=== PATIENT | female | born 1980 | race Caucasian/White ===

== ENCOUNTER 2016-11-13 08:46 | Emergency (ER) | payer BC ==
[~2016-11-13] VITALS: Ht 167.6 cm; Wt 65.9 kg
[~2016-11-13 08:46] MED LIST: DPKSR250 PO; SUMA50TA15 PO
[2016-11-13 08:48] VITALS: Ht 167.6 cm; Wt 65.9 kg
[2016-11-13] MEDS ORDERED: THYR90TA PO (09:40)
[2016-11-13] MEDS ORDERED: IBUP-103 PO (09:40)
[2016-11-13 10:55] LABS: BASO % 0.1 %; BASO ABS # 0.01 K/uL (0-0.2); COMPLETE YES; EOS % 0.4 %; HEMATOCRIT 41.7 % (37-47); IG% 0.3 %; LYMPH % 14.9 %; LYMPH ABS # 1.89 K/uL (1.2-3.4); MEAN CELL VOLUME 86.7 fL (80-100); MEAN CORPUSCULAR HEMOGLOBIN 30.1 pg (25-34); MEAN CORPUSCULAR HGB CONC 34.8 g/dl (32-36); MEAN PLATELET VOLUME 10.9 fL (7.4-10.4); MONO % 6.5 %; NEUT % 77.8 %; PLATELET COUNT 203 K/uL (130-400); RED BLOOD COUNT 4.81 M/uL (4.2-5.4); WHITE BLOOD COUNT 12.71 K/uL (4.8-10.8)
[2016-11-13 11:10] LABS: BUN/CREATININE RATIO 13.7 (10-20); CREATININE 0.73 mg/dl (0.60-1.20)
[2016-11-13 12:22] VITALS: BP 99/66; PULSE 78; TEMP 36.8; O2SAT 98
--- NOTE | 2016-11-13 12:35 | EMERGENCY ROOM VISIT NOTE ---
History Report prepared by Anusha: Jojo Pierce Under the Supervision of: Dr. Ladan Wu M.D. First contact with patient: 10:17 Chief Complaint: RECTAL BLEEDING Stated Complaint: BLOOD IN STOOL Nursing Triage Summary: pt to the ED with dark stool 6 days ago lasted 3 days, then got bright red and thought it was a hemmroid tried OTC meds for it and didn't work and PMD ordered a "foam" and woke up 4 am yesterday with bright red blood saw jean claude LY at [facility] and they did bloodwork no word on results and now today continued bright red blood. "a little dizziness nothing major" per pt and c/o pressure and gas History of Present Illness The patient is a 35 year old female who presents to the Emergency Room with complaints of intermittent rectal bleeding for the past 6 days. Initially she was having blood throughout her stool, but states that over the past couple of days she has been passing blood without any stool. She rates her pain as a 5/ 10. She saw her PCP 3 days ago because she was passing blood every 20 minutes and she was treated for hemorrhoids at that time. 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 She denies any constipation. She has a history of a but denies any other previous abdominal surgeries. Source of History: patient Onset: 6 days ago Position: other (rectum) Symptom Intensity: 5/10 Quality: other (bleeding) Timing: intermittent Modifying Factors (Worsening): defecation Note: Pt denies constipation. Review of Systems See HPI for pertinent positives & negatives. A total of 10 systems reviewed and were otherwise negative. Past Medical & Surgical Surgical Problems: (1) Hx of section Family History No pertinent history stated. Social History Smoking Status: Never Smoker Alcohol Use: occasionally Marital Status: Housing Status: lives with family Occupation Status: employed Current/Historical Medications Scheduled Ibuprofen Tab (Advil), 200-600 MG PO Q4H Sumatriptan Succinate (Imitrex), 50 MG PO PRN Thyroid ([place] Thyroid), 80 MG PO DAILY Allergies Coded Allergies: Codeine (Verified Adverse Reaction, Mild, NAUSEA, 03/19/13) Physical Exam Vital Signs Date Time Temp Pulse Resp B/P Pulse Ox O2 Delivery O2 Flow Rate FiO2 11/13/16 12:22 36.8 78 20 99/66 98 11/13/16 12:10 78 99/66 98 Room Air 11/13/16 10:56 81 20 118/71 100 Room Air 11/13/16 08:48 36.8 88 18 130/89 98 Room Air Physical Exam CONSTITUTIONAL: No acute distress. HEENT: No icterus, moist mucous membranes NECK: No meningismus, trachea is midline. CARDIOVASCULAR: Regular rate, normal perfusion RESPIRATORY: Unlabored breathing. Clear to auscultation. GASTROINTESTINAL: Non-tender GENITOURINARY: No flank tenderness RECTAL: Small hemorrhoid without active bleeding, small amount of bright red blood on digital exam, no active bleeding. MUSCULOSKELETAL: Full range of motion NEUROLOGIC: No acute gross focal deficits. PSYCHIATRIC: Normal affect SKIN: Normal for ethnicity. Medical Decision & Procedures Laboratory Results 11/13/16 10:40 Red Blood Count 4.81, Mean Corpuscular Volume 86.7, Mean Corpuscular Hemoglobin 30.1, Mean Corpuscular Hemoglobin Concent 34.8, Mean Platelet Volume 10.9, Neutrophils (%) (Auto) 77.8, Lymphocytes (%) (Auto) 14.9, Monocytes (%) (Auto) 6.5, Eosinophils (%) (Auto) 0.4, Basophils (%) (Auto) 0.1, Neutrophils # (Auto) 9.90, Lymphocytes # (Auto) 1.89, Monocytes # (Auto) 0.82, Eosinophils # (Auto) 0.05, Basophils # (Auto) 0.01 11/13/16 10:40 Test 11/13/16 10:40 White Blood Count 12.71 K/uL (4.8-10.8) Red Blood Count 4.81 M/uL (4.2-5.4) Hemoglobin 14.5 g/dL (12.0-16.0) Hematocrit 41.7 % (37-47) Mean Corpuscular Volume 86.7 fL (80-100) Mean Corpuscular Hemoglobin 30.1 pg (25-34) Mean Corpuscular Hemoglobin Concent 34.8 g/dl (32-36) Platelet Count 203 K/uL (130-400) Mean Platelet Volume 10.9 fL (7.4-10.4) Neutrophils (%) (Auto) 77.8 % Lymphocytes (%) (Auto) 14.9 % Monocytes (%) (Auto) 6.5 % Eosinophils (%) (Auto) 0.4 % Basophils (%) (Auto) 0.1 % Neutrophils # (Auto) 9.90 K/uL (1.4-6.5) Lymphocytes # (Auto) 1.89 K/uL (1.2-3.4) Monocytes # (Auto) 0.82 K/uL (0.11-0.59) Eosinophils # (Auto) 0.05 K/uL (0-0.5) Basophils # (Auto) 0.01 K/uL (0-0.2) RDW Standard Deviation 38.8 fL (36.4-46.3) RDW Coefficient of Variation 12.1 % (11.5-14.5) Immature Granulocyte % (Auto) 0.3 % Immature Granulocyte # (Auto) 0.04 K/uL (0.00-0.02) Anion Gap 8.0 mmol/L (3-11) Est Creatinine Clear Calc Drug Dose 102.5 ml/min Estimated GFR () 125.4 Estimated GFR (Non- 108.2 BUN/Creatinine Ratio 13.7 (10-20) Calcium Level 9.0 mg/dl (8.5-10.1) Labs reviewed by ED physician. ED Course 1017: Past medical records reviewed. The patient was evaluated in room C6. A complete history and physical examination was performed. 1040: I spoke with Dr. Johnson of GI. We discussed the patient's results and treatment plan. He will follow-up with the patient in the office later this week. 1219: I reassessed the patient at this time. She is feeling better and resting comfortably. I discussed the results and treatment plan with the patient. I answered all pertaining questions that she had. She expressed understanding and verbalized agreement. The patient will be discharged home. Medical Decision Differential diagnoses includes internal/external hemorrhoid, diverticular disease, oncologic process. 35-year-old with history of external hemorrhoids presents to emergency room for evaluation of bright red blood per rectum without family history of ulcerative nor Crohn's disease. She slid out of stable is recent change her doctor several days ago and outpatient lab work drawn but is not yet available. She is noted to have a external hemorrhoid that is not actively bleeding and digital exam revealed small amount of bright red blood with brown stool. She was observed here for several hours and hemoglobin was normal. I discussed case with Dr. Johnson who can see patient this week in office. Patient is in agreement with plan for outpatient follow-up this time and understands to return the emergency room for any worsening worrisome symptoms. Impression Primary Impression: Rectal bleed Scribe Attestation The scribe's documentation has been prepared under my direction and personally reviewed by me in its entirety. I confirm that the note above accurately reflects all work, treatment, procedures, and medical decision making performed by me. Departure Information Dispostion Home / Self-Care Referrals Jamie Langston M.D. (PCP) Joe Johnson D.O. Forms HOME CARE DOCUMENTATION FORM, IMPORTANT VISIT INFORMATION, WORK / SCHOOL INSTRUCTIONS Patient Instructions A Signature Page, GI Bleeding - [facility] Additional Instructions Follow-up with gastroenterology. Call Dr. Johnson Monday .
== END 2016-11-13 12:23 | disposition home or self-care (01) ==
LOC: C.EDB 08:47 → C.EDC 12:23
DX: K62.5 Hemorrhage of anus and rectum (principal); K64.4 Residual hemorrhoidal skin tags; Z79.899 Other long term (current) drug therapy